=== PATIENT | female | born 1980 | race African-American/Black ===

== ENCOUNTER 2018-03-13 17:56 | Emergency (ER) | payer SELFPAY ==
[2018-03-13] MEDS ORDERED: ONDANSETRON 4 MG/2 ML VIAL ONE (18:35)
[2018-03-13] MEDS ORDERED: NA CHLORIDE 0.9% 1,000 ML ONE ×2 (18:35→20:27)
[2018-03-13 19:03] LABS: Absolute Lymphocytes (CBC) 0.4 K/uL (0.7-4.9); Absolute Monocytes 0.3 K/uL (0.1-1.3); Absolute Neutrophil 8.5 K/uL (1.8-8.0); Basophils % 0.1 % (0-1.3); Eosinophils % 0.7 % (0-4.4); Hematocrit 37.7 % (36.0-45.0); MCH 24.3 pg (27.0-35.0); MCV 74.1 fL (80-100); MPV 9.5 fL (7.6-11.3); Monocytes % 3.3 % (3.3-12.3); RBC Red Blood Cell Count 5.09 M/uL (3.86-4.86)
[2018-03-13 19:15] LABS: ALT/SGPT 19 U/L (12-78); AST/SGOT 10 U/L (15-37); Albumin 3.7 g/dL (3.4-5.0); Alkaline Phosphatase 54 U/L (45-117); Amylase Level 69 U/L (25-115); BUN Blood Urea Nitrogen 13 mg/dL (7-18); Bicarbonate 25 mmol/L (21-32); Bilirubin Direct 0.2 mg/dL (0-0.2); Bilirubin Total 0.7 mg/dL (0.2-1.0); Glucose Level 106 mg/dL (74-106); Lipase 91 U/L (73-393); Potassium 3.9 mmol/L (3.5-5.1); Protein, Total 7.5 g/dL (6.4-8.2); Sodium Level 142 mmol/L (136-145)
[2018-03-13] MEDS ORDERED: KETOROLAC 30 MG/ML INJ ONE (19:30)
[2018-03-13 19:39] LABS: Blood Morphology Comment NOT SEEN (NOT SEEN); Platelet Estimate ADEQ; Urine White Blood Cell Casts OK
[2018-03-13 20:19] LABS: Urine Amorphous Sediment 4+ /HPF (NONE SEEN); Urine Bacteria 20-50 /HPF (<20); Urine Culture Reflex Order REFLEXED; Urine RBC <5 /HPF (NONE SEEN)
[2018-03-13] MEDS ORDERED: METOCLOPRAMIDE 10 MG/2mL INJ ONE (20:27)
--- NOTE | 2018-03-13 21:21 | ER ---
Nurse's Notes [facility] Name: New Collins Age: 37 yrs Sex: Female : 1980 Arrival Date: 03/13/2018 Time: 17:59 Bed 23 Private MD: Goyo De León E Diagnosis: Infectious mononucleosis Presentation: 03/13 18:02 Presenting complaint: Patient states: Reports migraine headache and urinary urgency aj since 1300 today. Transition of care: patient was not received from another setting of care. Onset of symptoms was March 13, 2018. Risk Assessment: Do you want to hurt yourself or someone else? Patient reports no desire to harm self or others. Initial Sepsis Screen: Does the patient meet any 2 criteria? No. Patient's initial sepsis screen is negative. Does the patient have a suspected source of infection? No. Patient's initial sepsis screen is negative. Care prior to arrival: None. 18:02 Method Of Arrival: Ambulatory aj 18:02 Acuity: SKY 3 aj Triage Assessment: 18:04 General: Appears in no apparent distress. comfortable, Behavior is calm, cooperative, aj appropriate for age. Pain: Complains of pain in face and scalp. Neuro: Level of Consciousness is awake, alert, obeys commands, Oriented to person, place, time, situation, Appropriate for age Reports headache. Respiratory: Airway is patent Respiratory effort is even, unlabored, Respiratory pattern is regular, symmetrical. GI: Reports nausea, vomiting. : Reports urgency. Derm: Skin is intact, is healthy with good turgor, Skin is pink, warm \\T\\ dry. normal. 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 - Social history:: Smoking status: Patient/guardian denies using tobacco. - Ebola Screening: : Patient negative for fever greater than or equal to 101.5 degrees Fahrenheit, and additional compatible Ebola Virus Disease symptoms Patient denies exposure to infectious person Patient denies travel to an Ebola-affected area in the 21 days before illness onset No symptoms or risks identified at this time. Screenin:18 Abuse screen: Denies threats or abuse. Nutritional screening: No deficits noted. tw2 Tuberculosis screening: No symptoms or risk factors identified. Fall Risk None identified. Assessment: 18:16 General: Appears in no apparent distress. well groomed, Behavior is calm, cooperative, tw2 appropriate for age. Pain: Complains of pain in "all over and i have a headache". Neuro: Level of Consciousness is awake, alert, obeys commands, Oriented to person, place, time, situation. Cardiovascular: Denies chest pain, shortness of breath, Heart tones S1 S2 Capillary refill < 3 seconds Patient's skin is warm and dry. Respiratory: Airway is patent Respiratory effort is even, unlabored, Respiratory pattern is regular, symmetrical, Breath sounds are clear bilaterally. GI: Abdomen is round non-distended, Bowel sounds present X 4 quads. : Reports urgency. EENT: Reports pain in scalp and face. Derm: No signs and/or symptoms reported regarding the dermatologic system. Musculoskeletal: Range of motion: intact in all extremities. 19:15 Reassessment: Patient is alert, oriented x 3, equal unlabored respirations, skin lp1 warm/dry/pink. Patient states feeling pain to general body, aching; Provider notifed. 20:30 Reassessment: Patient states continuing to feel achy to general body. lp1 21:35 Reassessment: Patient is alert, oriented x 3, equal unlabored respirations, skin lp1 warm/dry/pink. Patient states feeling better. Patient states symptoms have improved. Vital Signs: 18:02 BP 121 / 70; Pulse 91; Resp 18; Temp 98.6(O); Pulse Ox 97% on R/A; Weight 85.73 kg (R); tw2 Height 5 ft. 2 in. (157.48 cm); 19:30 BP 138 / 80; Pulse 88; Resp 16; Pulse Ox 99% on R/A; lp1 20:30 BP 119 / 81; Pulse 81; Resp 16; Pulse Ox 100% on R/A; lp1 21:32 BP 121 / 68; Pulse 77; Resp 16; Pulse Ox 98% on R/A; lp1 18:02 Body Mass Index 34.57 (85.73 kg, 157.48 cm) tw2 ED Course: 17:59 Patient arrived in ED. 18:00 Goyo De León MD is Private Physician. mr 18:03 Triage completed. aj 18:04 Arm band placed on left wrist. Patient placed in an exam room. aj 18:08 Claudia Salinas RN is Primary Nurse. tw2 18:10 Bed in low position. Call light in reach. Pulse ox on. NIBP on. tw2 18:13 Devon Selby PA is PHCP. jm 18:13 Pete Little MD is Attending Physician. jmm 18:22 Urine --Ancillary (enter results) Sent. tw2 18:22 Urine Dipstick--Ancillary (enter results) Sent. tw2 18:25 Urine Microscopic Only Sent. tw2 18:35 No provider procedures requiring assistance completed. Inserted saline lock: 22 gauge tw2 in right antecubital area, using aseptic technique. Blood collected. 19:00 Report given to ANTONIO Curry. tw2 21:20 Goyo De León MD is Referral Physician. [facility] 21:37 IV discontinued, No redness/swelling at site. Pressure dressing applied. lp1 Administered Medications: 16:35 Drug: Zofran 4 mg Route: IVP; Site: right antecubital; tw2 18:59 Follow up: Response: No adverse reaction tw2 18:37 Drug: NS 0.9% 1000 ml Route: IV; Rate: 1 bolus; Site: right antecubital; tw2 20:00 Follow up: IV Status: Completed infusion; IV Intake: 1000ml lp1 19:29 Drug: Ketorolac 30 mg Route: IVP; Site: right antecubital; lp1 20:27 Follow up: Response: No adverse reaction; Pain is decreased lp1 20:26 Drug: Reglan 10 mg Route: IVP; Site: right antecubital; lp1 21:38 Follow up: Response: No adverse reaction lp1 20:27 Drug: NS 0.9% 1000 ml Route: IV; Rate: 1 bolus; Site: right antecubital; lp1 21:38 Follow up: IV Status: Completed infusion; IV Intake: 1000ml lp1 Intake: 20:00 IV: 1000ml; Total: 1000ml. lp1 21:38 IV: 1000ml; Total: 2000ml. lp1 Outcome: 21:21 Discharge ordered by . jm 21:37 Discharged to home ambulatory, with friend. lp1 21:37 Condition: good 21:37 Discharge instructions given to patient, Instructed on discharge instructions, follow up and referral plans. medication usage, Demonstrated understanding of instructions, follow-up care, medications, Prescriptions given X 2. 21:38 Patient left the ED. lp1 Signatures: Kadi Salinas RN RN aj Mickail, Joel, PA PA jmm Rivera, Maria mr Antoinette Núñez RN RN lp1 Claudia Salinas RN RN tw2
--- NOTE | 2018-03-13 21:21 | EDPHYS ---
Physician Documentation [facility] Name: New Collins Age: 37 yrs Sex: Female : 1980 Arrival Date: 03/13/2018 Time: 17:59 Bed 23 Private MD: Goyo De León E ED Physician Pete Little HPI: 03/13 18:13 This 37 yrs old Black Female presents to ER via Ambulatory with complaints of Urinary jmm Problem, Vomiting/Diarrhea. 18:13 The patient presents to the emergency department with vomiting. Onset: The jmm symptoms/episode began/occurred acutely, today. Possible causes: sick contacts, daughter. The symptoms are aggravated by nothing. The symptoms are alleviated by nothing. Associated signs and symptoms: Pertinent positives: vomiting. This is a 37 year old female with a history of migraines and asthma that presents to the ED with headache, vomiting, and a loose bowel movements beginning today. States her daughter has similar symptoms. Denies abdominal pain. . 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 - Social history:: Smoking status: Patient/guardian denies using tobacco. - Ebola Screening: : Patient negative for fever greater than or equal to 101.5 degrees Fahrenheit, and additional compatible Ebola Virus Disease symptoms Patient denies exposure to infectious person Patient denies travel to an Ebola-affected area in the 21 days before illness onset No symptoms or risks identified at this time. ROS: 18:13 Eyes: Negative for injury, pain, redness, and discharge, ENT: Negative for injury, jmm pain, and discharge, Cardiovascular: Negative for chest pain, palpitations, and edema, Respiratory: Negative for shortness of breath, cough, wheezing, and pleuritic chest pain. 18:13 MS/Extremity: Negative for injury and deformity, Skin: Negative for injury, rash, and discoloration. 18:13 Constitutional: Positive for body aches. 18:13 Abdomen/GI: Positive for nausea and vomiting. 18:13 Neuro: Positive for headache. 18:13 All other systems are negative. Exam: 18:13 Head/Face: atraumatic. Chest/axilla: Normal chest wall appearance and motion. jerrell Cardiovascular: Regular rate and rhythm. No edema appreciated Respiratory: Normal respirations, no respiratory distress appreciated Abdomen/GI: Non distended, soft 18:13 Constitutional: The patient appears in no acute distress, alert, awake. 18:13 Abdomen/GI: Inspection: abdomen appears normal, Bowel sounds: normal, Palpation: abdomen is soft and non-tender. 18:13 Musculoskeletal/extremity: ROM: intact in all extremities. 18:13 Skin: Appearance: Color: normal in color. 18:13 Neuro: Orientation: is normal, Mentation: is normal, Memory: is normal. 18:13 Psych: Behavior/mood is pleasant, cooperative. Vital Signs: 18:02 BP 121 / 70; Pulse 91; Resp 18; Temp 98.6(O); Pulse Ox 97% on R/A; Weight 85.73 kg (R); tw2 Height 5 ft. 2 in. (157.48 cm); 19:30 BP 138 / 80; Pulse 88; Resp 16; Pulse Ox 99% on R/A; lp1 20:30 BP 119 / 81; Pulse 81; Resp 16; Pulse Ox 100% on R/A; lp1 21:32 BP 121 / 68; Pulse 77; Resp 16; Pulse Ox 98% on R/A; lp1 18:02 Body Mass Index 34.57 (85.73 kg, 157.48 cm) tw2 MDM: 18:13 Patient medically screened. domenic 21:20 Data reviewed: vital signs, nurses notes. Counseling: I had a detailed discussion with jerrell the patient and/or guardian regarding: the historical points, exam findings, and any diagnostic results supporting the discharge/admit diagnosis, lab results, radiology results, the need for further work-up and treatment in the hospital, to return to the emergency department if symptoms worsen or persist or if there are any questions or concerns that arise at home. Response to treatment: the patient's symptoms have markedly improved after treatment. 03/13 18:21 Order name: Urine Dipstick--Ancillary (enter results); Complete Time: 21:53 eb 03/13 18:21 Order name: Urine --Ancillary (enter results); Complete Time: 21:53 eb 03/13 18:24 Order name: Amylase, Serum; Complete Time: 19:21 [facility] 03/13 18:24 Order name: Basic Metabolic Panel; Complete Time: 19:21 [facility] 03/13 18:24 Order name: CBC with Diff; Complete Time: 20:00 [facility] 03/13 18:24 Order name: Creatinine for Radiology; Complete Time: 19:14 [facility] 03/13 18:24 Order name: Hepatic Function; Complete Time: 19:21 [facility] 03/13 18:24 Order name: Lipase; Complete Time: 19:21 [facility] 03/13 18:24 Order name: Urine Microscopic Only; Complete Time: 21:53 [facility] 03/13 18:24 Order name: [place] Screen Profile; Complete Time: 20:00 [facility] 03/13 18:24 Order name: Strep; Complete Time: 19:21 [facility] 03/13 19:04 Order name: CBC Smear Scan; Complete Time: 20:00 [facility] 03/13 19:18 Order name: Throat Culture [facility] 03/13 20:20 Order name: Urine Culture [facility] 03/13 18:18 Order name: Urine Dipstick-Ancillary (obtain specimen); Complete Time: 18:18 [facility] 03/13 18:24 Order name: IV Saline Lock; Complete Time: 18:38 [facility] 03/13 18:24 Order name: Labs collected and sent; Complete Time: 18:38 [facility] Administered Medications: 16:35 Drug: Zofran 4 mg Route: IVP; Site: right antecubital; tw2 18:59 Follow up: Response: No adverse reaction tw2 18:37 Drug: NS 0.9% 1000 ml Route: IV; Rate: 1 bolus; Site: right antecubital; tw2 20:00 Follow up: IV Status: Completed infusion; IV Intake: 1000ml lp1 19:29 Drug: Ketorolac 30 mg Route: IVP; Site: right antecubital; lp1 20:27 Follow up: Response: No adverse reaction; Pain is decreased lp1 20:26 Drug: Reglan 10 mg Route: IVP; Site: right antecubital; lp1 21:38 Follow up: Response: No adverse reaction lp1 20:27 Drug: NS 0.9% 1000 ml Route: IV; Rate: 1 bolus; Site: right antecubital; lp1 21:38 Follow up: IV Status: Completed infusion; IV Intake: 1000ml lp1 Disposition: 03/13/18 21:21 Discharged to Home. Impression: Infectious mononucleosis. - Condition is Stable. - Discharge Instructions: Infectious Mononucleosis. - Prescriptions for Zofran ODT 4 mg Oral tablet,disintegrating - place 1 tablet by TRANSLINGUAL route 4 times per day; 20 tablet. Ibuprofen 800 mg Oral Tablet - take 1 tablet by ORAL route every 12 hours As needed take with food; 20 tablet. - Medication Reconciliation Form, Thank You Letter, Antibiotic Education, Prescription Opioid Use, Work release form form. - Follow up: Goyo De León MD; When: 2 - 3 days; Reason: Recheck today's complaints, Continuance of care, Re-evaluation by your physician. Addendum: 03/16/2018 07:24 Co-signature as Attending Physician, Pete Little MD I agree with the assessment and c parra plan of care. Signatures: Dispatcher [employer] EDKadi Conn RN Pete Nichols MD MD cha Mickail, Joel, PA PA Antoinette Escamilla, RN RN lp1 Claudia Salinas RN RN tw2 Corrections: (The following items were deleted from the chart) 03/13 21:38 21:21 03/13/2018 21:21 Discharged to Home. Impression: Infectious mononucleosis. lp1 Condition is Stable. Forms are Medication Reconciliation Form, Thank You Letter, Antibiotic Education, Prescription Opioid Use. Follow up: Goyo De León; When: 2 - 3 days; Reason: Recheck today's complaints, Continuance of care, Re-evaluation by your physician. jerrell
[2018-03-13 21:29] LABS: Urine Blood NEGATIVE (NEG); Urine Glucose NEGATIVE (NEG); Urine Protein NEGATIVE (NEG); Urine pH 8.5 (5.0-7.0)
[2018-03-13 21:43] VITALS: TEMP 98.6
[2018-03-13 21:46] VITALS: BP 121/68; O2SAT 98
== END 2018-03-13 21:38 | disposition home or self-care (01) ==
LOC: ER 17:56
DX: B27.90 Infectious mononucleosis, unspecified without complication (principal); J45.909 Unspecified asthma, uncomplicated
CPT/HCPCS: 36415; 80048; 80076; 81003; 81015; 81025; 82150; 83690; 85025; 86308; 87070; 87081; 87086; 87088; 96361; 96374; 96375; 99284; J2405; J2765; J7030

== ENCOUNTER → 2018-12-29 | Day surgery (SDC) | payer OTHER ==
--- NOTE | 2018-12-29 11:03 | RAD REPORT ---
EXAM DESCRIPTION: US - Guided FNA Non Breast - 12/29/2018 10:51 am CLINICAL HISTORY: E04.2 COMPARISON: No comparisons FINDINGS: Preoperative diagnosis: Right thyroid lobe nodule.. Post operative diagnosis: Same. Conscious Sedation: None Fluoroscopy time: None Contrast used: None Estimated blood loss: Minimal Specimens:5 x 25 gauge FNA samples The right neck was prepped and draped in the usual sterile fashion. 1% lidocaine was infiltrated into the subcutaneous tissues for local anesthesia. Real time ultrasound scanning of the right thyroid de monstrated 2 cm inferiorly located nodule. Under ultrasound guidance, using a 25 gauge FNA needles, 5 specimens were obtained of this lesion and sent to pathology for evaluation. There were no complicat ions. IMPRESSION: Successful ultrasound-guided right thyroid lobe FNA procedure.
== END ==
LOC: FNA 09:56
PROVIDERS: ATTEND Family Medicine
PROC: 0G9H3ZX Drainage of Right Thyroid Gland Lobe, Percutaneous Approach, Diagnostic (ICD-10-PCS; principal; 2018-12-29)
PROC: BG44ZZZ Ultrasonography of Thyroid Gland (ICD-10-PCS; 2018-12-29)
DX: E04.2 Nontoxic multinodular goiter (principal)
CPT/HCPCS: 88162

== ENCOUNTER → 2024-11-12 | Day surgery (SDC) | payer OTHER ==
--- NOTE | 2024-11-12 13:06 | RAD REPORT ---
PROCEDURE: ULTRASOUND GUIDED BIOPSY Pre-procedure diagnosis: Right thyroid nodule Post-procedure diagnosis: Same as above. CLINICAL INDICATION: Histopathologic diagnosis and molecular characterization. Female, 44 years old. E04.9 Previous biopsy of same target: 12/29/2018 Additional clinical history: None. COMPLICATIONS: No immediate complications. IMPRESSION: Percutaneous ultrasound-guided FNA biopsy of lower pole right thyroid nodule Additional procedure(s): None. PLAN: Specimen sent for evaluation. PROCEDURE DETAILS: Consent: Informed consent for the procedure including risks, benefits and alternatives was obtained a nd time-out was performed prior to the procedure. Preparation: The site was prepared and draped using routine sterile technique, hand hygiene and cutan eous antisepsis with 2% chlorhexidine. Sedation: No sedation Imaging prior to biopsy: The patient was positioned supine and initial imaging was performed, reveali ng dominant bilobed mixed cystic and solid right thyroid nodule, measuring up to 3 cm, which has revealed interval enlargement on the 10/19/2024 ultrasound. Biopsy: Local anesthesia was administered. Under fluoroscopic guidance, multiple 25-gauge biopsy need les of various lengths were advanced to the target nodule, and FNA biopsy was performed. The biopsy needles were removed and a sterile dressing was applied. Number of specimens: 5 On-site biopsy touch preparation: Performed by pathology. Additional sampling description: None. Preliminary assessment of sample adequacy: Adequate Tract embolization: None. Post-biopsy imaging findings: No immediate complications seen. Contrast used: None. Estimated blood loss: None. IMPRESSION: Technically successful ultrasound-guided fine-needle aspiration biopsy and cytology of the dominant r ight lower thyroid lobe nodule.
== END ==
LOC: FNA 09:33
PROVIDERS: ATTEND Family Medicine
PROC: 0GBH3ZX Excision of Right Thyroid Gland Lobe, Percutaneous Approach, Diagnostic (ICD-10-PCS; principal; 2024-11-12)
DX: E04.9 Nontoxic goiter, unspecified (principal)
CPT/HCPCS: 88162